=== PATIENT | female | born 1985 | race Caucasian/White ===

== ENCOUNTER 2018-10-07 04:53 | Inpatient (IN) ==
[2018-10-07] MEDS ORDERED: NALOXONE 0.4 MG/1 ML VIAL IVP PRN (05:00)
[2018-10-07] MEDS ORDERED: Nalbuphine Inj 20 MG/ML Ampule IVP PRN ×2 (05:00→16:00)
[2018-10-07] MEDS ORDERED: Metoclopramide Inj 10 MG/2 ML VIAL IV PRN (05:00)
[2018-10-07] MEDS ORDERED: METHYLERGONOVINE MALEATE 0.2 MG/1 ML VIAL IM PRN (05:00)
[2018-10-07] MEDS ORDERED: Carboprost Inj 250 MCG/ML AMP IM PRN (05:00)
[2018-10-07] MEDS ORDERED: Oxytocin 20 Units + LR 20 UNIT/1,000 ML BAG IV SCH ×3 (05:00→16:00)
[2018-10-07] MEDS ORDERED: BUTORPHANOL TARTRATE 2 MG/1 ML VIAL IVP PRN (05:00)
[2018-10-07] MEDS ORDERED: LIDOCAINE W/ SODIUM BICARB 0.5 ML SYR SUBD PRN (05:00)
[2018-10-07] MEDS ORDERED: diphenhydrAMINE 50 MG/1 ML VIAL IVP PRN ×2 (05:00→16:00)
[2018-10-07] MEDS ORDERED: CefOXitin Inj 2 GM in Sodium Chloride 0.9% 100 ML IV PRN (05:00)
[2018-10-07] MEDS ORDERED: OXYTOCIN 10 UNIT/1 ML IM PRN (05:00)
[2018-10-07] MEDS ORDERED: ePHEDrine Inj 50 MG/ML AMP IVP PRN (05:00)
[2018-10-07] MEDS ORDERED: CITRIC ACID/SODIUM CITRATE 30 ML CUP PO PRN (05:00)
[2018-10-07] MEDS ORDERED: Lidocaine 1% 10 MG/ML - 20 ML VIAL SUBCUT PRN (05:00)
[2018-10-07] MEDS ORDERED: CALCIUM CARBONATE 500 MG (TUMS) CHEWABLE TABLET PO PRN ×2 (05:00→16:00)
[2018-10-07] MEDS ORDERED: ONDANSETRON 4 MG/2 ML VIAL IVP PRN ×2 (05:00→16:00)
[2018-10-07] MEDS ORDERED: TERBUTALINE SULFATE 1 MG/1 ML SDV SUBCUT PRN (05:00)
[2018-10-07] MEDS ORDERED: Naloxone Inj 0.01 MG in Sodium Chloride 0.9% vial 1 ML IVP PRN (05:00)
[2018-10-07] MEDS ORDERED: LIDOCAINE HCL 2 % 10 ML JELLY URO-JECT TOPICAL PRN ×2 (05:00→16:00)
[2018-10-07] MEDS ORDERED: FAMOTIDINE 20 MG/2 ML VIAL IVP PRN ×2 (05:00)
[2018-10-07] MEDS ORDERED: MISOPROSTOL 200 MCG TABLET RECTAL PRN (05:00)
[2018-10-07] MEDS ORDERED: fentaNYL Inj 100 MCG/2 ML VIAL IV PRN (05:00)
[2018-10-07] MEDS ORDERED: Phenylephrine Inj 50 MCG in Sodium Chloride 0.9% vial 0.5 ML IVP PRN (05:00)
[2018-10-07 05:42] LABS: Hematocrit [HCT] 38.6 % (37.0-47.0); Hemoglobin [HGB] 12.8 g/dL (12.0-16.0); MEAN CORPUSCULAR HEMOGLOBIN 29.2 PG (27-31); MEAN CORPUSCULAR HGB CONC 33.2 g/dL (33-37); MEAN CORPUSCULAR VOLUME 88.1 FL (81-99); MEAN PLATELET VOLUME 9.7 FL (7.4-12.2); RED BLOOD COUNT 4.38 10^6/uL (4.20-5.40)
[2018-10-07] MEDS: Lactated Ringers-OB Dept 1,000 ML PRIMARY IV SCH ×3 (05:44→18:05)
[2018-10-07] MEDS ORDERED: Fent/Bupiv 2mcg/0.0625% Epid 250 ML ONE (09:04)
--- NOTE | 2018-10-07 09:24 | CRNA.PROCE ---
Central Neuraxis Block Placemt - - Safety Measures: Time Out Taken, Site Verified - - Type of Block: Epidural Reason for Block: Analgesia Moniters Used During Block: SPO2, NIBP Positioning: Sitting Skin Prep Used: Betadine Skin Infiltration - Enter Amount Used in Comment Field: 1% Xylocaine (mL): Yes (wheal) Introducer User: 18 Gauge Omar Local Anesthetic - Enter Amount Used in Comment Field: 1.5 % Xylocaine with Epinephrine 1:200,000 (mL): Yes (Test dose Neg 5ml), Other Local Anesthetic: Yes Number of Centimeters Catheter Threaded: 4 Bioclusive Dressing Applied: Yes - - Additional Details: Sitting, discussed risk/benefits, wishes to proceed. Monitors, landmarks id'd, betadine prep, drape. Skin wheal L4-5 and #18 Hustead passed and crisp DANGELO to saline first pass. Cath easily 4cm. Test dose neg. PCEA started. Anesthesia Time - Other Weight: 123.434 kg Height: 5 ft 6 in Body Mass Index (BMI): 43.9
[2018-10-07] MEDS ORDERED: fentaNYL 2 MCG/BUPIVACAINE 0.0625%/NS 0.9% 250 ML BAG EPIDURAL SCH (09:30)
--- NOTE | 2018-10-07 09:44 | OB.PROGRES ---
Date of Service: 10/07/18 Time of Service: 09:42 Interval History: Pt is a 32 yo at 39 0/7 weeks by sure LMP who presents for elective induction of labor at term secondary to living 50 miles away in [place]. She has been having some sporadic contractions, but nothing super painful or regular. Denies vag bleeding, abnormal discharge or gushes of fluid. Baby has been active. She has had several third trimester u/s for size greater than dates. She has been on pitocin since 0600 this morning and is currently requesting an epidural for analgesia. Objective - Cervical Exam Cervical Exam: /-2 [place]: every 2-4 minutes, palpating moderate Heart Rate Interpretation Category: Category I - Labs CBC and BMP: 10/08/18 04:10 - Vital Signs Last Taken Vital Signs: Vital Signs - Last Taken Temperature 97.6 F 10/07/18 07:45 Pulse Rate 64 10/07/18 07:45 Respiratory Rate 20 10/07/18 07:45 Blood Pressure 139/82 10/07/18 07:45 Pulse Ox 99 10/07/18 06:14 Assessment and Plan - Patient Problems (1) Active labor at term Status: Acute - Assessment / Plan Additional Assessment/Plan Details: -epidural for analgesia. -amniotomy completed with return of clear fluid. -category 1 tracing. -augmenting labor with pitocin. -expectant management.
[2018-10-07] MEDS ORDERED: BUPivacaine Inj 0.25% PF - 10ml vial ONE (10:40)
--- NOTE | 2018-10-07 15:37 | CRNA.PROGR ---
Anesthesia Time - Procedure/Recovery Time Start Date: 10/07/18 End Date: 10/07/18 Anesthesia : Time In: 09:15 Anesthesia : Time Out: 15:07 Anesthesia : Total Time: 352 - Total Anesthesia Time Total Anesthesia Time (minutes): 352 - Other Weight: 123.434 kg Height: 5 ft 6 in Body Mass Index (BMI): 43.9 Physical Status: P2
[2018-10-07] MEDS ORDERED: LANOLIN HPA 40 GM TUBE TOPICAL PRN (16:00)
[2018-10-07] MEDS ORDERED: HYDROcodone-APAP 5 MG -325 MG TABLET PO PRN (16:00)
[2018-10-07] MEDS ORDERED: BENZOCAINE/MENTHOL SPRAY 56 GM BOTTLE TOPICAL PRN (16:00)
[2018-10-07] MEDS ORDERED: ACETAMINOPHEN 325 MG TABLET PO PRN (16:00)
[2018-10-07] MEDS ORDERED: GLYCERIN/WITCH HAZEL 1 BOX TOPICAL PRN (16:00)
[2018-10-07] MEDS ORDERED: DIPH,PERTUSS,TET(ADACEL) VAC/PF 0.5 ML (Tdap) IM ONE (16:00)
[2018-10-07] MEDS ORDERED: Ondansetron ODT Tab 4 MG TAB PO PRN (16:00)
[2018-10-07] MEDS ORDERED: diphenhydrAMINE 25 MG CAPSULE PO PRN (16:00)
[2018-10-07] MEDS ORDERED: METHYLERGONOVINE MALEATE 0.2 MG/1 ML VIAL IM ONE (16:04)
[2018-10-07] MEDS: IBUPROFEN 800 MG TABLET PO PRN (16:45)
[2018-10-07] MEDS: DOCUSATE 100 MG CAPSULE PO SCH (20:44)
--- NOTE | 2018-10-07 21:41 | OB.DEL.SUM ---
Delivery Note Delivery Summary: Pt is a 32 yo G4 now P4 at 39 0/7 weeks by sure LMP who presented today for induction of labor secondary to living 50 miles away in [place]. Her previous pregnancies were also delivered at 39 weeks for the same reason, all uncomplicated. This has been remarkable for suspected macrosomia, with EFW's as of late measuring above the 90th percentile. On the day of admission, pt notes that she has been feeling some increased pelvic pressure, but denies any contractions. No vaginal bleeding or gushes of fluid. Her cervix was 3-4/80/-2 per RN. Her contractions were augmented with pitocin. An epidural was placed for analgesia. Her cervix was 5/60/-2 when I checked her at 0930 and performed amniotomy, which was productive of clear fluid. She progressed through active labor to c/c/+2 at 1445. She began pushing a short time later, with baby's in the straight OP presentation. She pushed through 2-3 contractions on each side and then went back into semi palomino's position. There, with pushing, the baby's head converted to the DEREK presentation. The shoulders delivered without complication. There was no nuchal cord. Time of delivery was 1507. The nose and mouth were suctioned with the bulb suction. Baby was dried and stimulated and placed on mom's chest. Cord clamping was delayed x 45 seconds. The cord was then doubly clamped by myself and cut by the father of the baby. Cord blood and cord gases were obtained for analysis. The placenta delivered spontaneously and intact, with a 3 vessel cord, at 1522. There was moderate uterine atony, which was addressed with 20 mU of pitocin as well as 1 dose of IM methergine. Her bladder was also drained with a red rubber catheter. The atony resolved. The vaginal and perineum were examined and a first degree perineal laceration was noted and repaired in the normal fashion with 3-0 vicryl rapide suture. There was excellent hemostasis. Apgars were 8 at 1 minute and 8 at 5 minutes. Baby weighed 8#10oz. EBL 450 cc. Both mom and baby tolerated delivery well and are in stable condition at this time.
[2018-10-08] MEDS: IBUPROFEN 800 MG TABLET PO PRN ×2 (03:41→11:50)
[2018-10-08 04:56] LABS: Hematocrit [HCT] 39.1 % (37.0-47.0); MEAN CORPUSCULAR HEMOGLOBIN 29.5 PG (27-31); MEAN CORPUSCULAR HGB CONC 33.2 g/dL (33-37); MEAN CORPUSCULAR VOLUME 88.7 FL (81-99); MEAN PLATELET VOLUME 10.2 FL (7.4-12.2); RED BLOOD COUNT 4.41 10^6/uL (4.20-5.40)
[2018-10-08 07:54] VITALS: BP 124/58; RESP 18; TEMP 97.4; O2SAT 96
[2018-10-08] MEDS: DOCUSATE 100 MG CAPSULE PO SCH (08:44)
[2018-10-08] MEDS ORDERED: Prenatal Multivitamin Tab 1 TAB TAB PO SCH (09:00)
--- NOTE | 2018-10-08 10:01 | CRNA.PROGR ---
Anesthesia Note - Progress Notes Anesthesia Progress Note: Sitting up in chair at time of visit. Ambulatory ad grover. Discussed her anesthetic course for MIKEY analgesia. She has no questions or concerns at this time. Vital Signs (24 hrs) 10/07/18 11:00 10/07/18 12:00 10/07/18 12:40 Temperature 98.4 F Pulse Rate 75 75 Pulse Rate [Pulse Oximeter Right] 57 L Respiratory Rate 20 20 Blood Pressure 147/88 155/84 Blood Pressure [Left Arm] Blood Pressure [Right Arm] 147/88 Pulse Ox 98 98 98 10/07/18 14:00 10/07/18 15:00 10/07/18 15:30 Temperature 97.4 F Pulse Rate 55 L Pulse Rate [Pulse Oximeter Right] 55 L 80 Respiratory Rate 20 20 Blood Pressure 127/77 Blood Pressure [Left Arm] Blood Pressure [Right Arm] 127/77 116/71 Pulse Ox 99 100 97 10/07/18 15:33 10/07/18 15:45 10/07/18 16:00 Temperature 97.7 F Pulse Rate 80 Pulse Rate [Pulse Oximeter Right] 68 77 Respiratory Rate 20 20 18 Blood Pressure 116/71 Blood Pressure [Left Arm] Blood Pressure [Right Arm] 131/77 134/82 Pulse Ox 97 100 10/07/18 16:15 10/07/18 16:30 10/07/18 16:45 Temperature 98 F Pulse Rate 63 Pulse Rate [Pulse Oximeter Right] 68 Respiratory Rate 18 18 Blood Pressure 135/69 Blood Pressure [Left Arm] Blood Pressure [Right Arm] 134/81 Pulse Ox 10/07/18 17:00 10/07/18 17:30 10/07/18 20:59 Temperature 97.7 F 98.2 F Pulse Rate 88 61 59 L Pulse Rate [Pulse Oximeter Right] Respiratory Rate 18 18 16 Blood Pressure 133/56 139/66 Blood Pressure [Left Arm] Blood Pressure [Right Arm] 137/56 Pulse Ox 99 98 10/08/18 00:33 10/08/18 07:00 10/08/18 07:53 Temperature 97.4 F Pulse Rate 45 L Pulse Rate [Pulse Oximeter Right] 62 60 Respiratory Rate 16 18 Blood Pressure Blood Pressure [Left Arm] 124/58 Blood Pressure [Right Arm] 129/72 Pulse Ox 98 96
--- NOTE | 2018-10-10 10:41 | OB.PROGRES ---
Subjective Post Day: 1 Pain Management: PO Curry Catheter: No Flatus: No Small 10-25 ml Diet: Regular [place] Feeding Method: Exculsively Ambulating: Yes Objective - General General Appearance: POSITIVE: No Acute Distress, Cooperative - Cardiovacular Cardiovascular Exam: POSITIVE: RRR, No Murmur Edema: +1 Pedal Edema Extremities: Negative Georgette's - Bilaterally - Respiratory Respiratory Exam: POSITIVE: Clear to Auscultation - Bilaterally, Breathing Non Labored - Abdomen Bowel Sounds: Present Assesstment / Plan (1) Status post vaginal delivery Status: Acute Assessment / Plan: -routine cares. -rh positive. -rubella immune. -breast feeding going well; baby is a bit gaggy, will continue to observe this afternoon. -possible discharge later this afternoon.
== END 2018-10-08 17:29 | disposition home or self-care (01) | DRG 807 ==
LOC: OBIP 04:53
PROVIDERS: ADMIT Family Medicine; ATTEND Family Medicine